=== PATIENT | male | born 1985 | race Caucasian/White ===

== ENCOUNTER 2023-02-22 20:56 | Outpatient (REF) | payer MEDICAID, SELFPAY ==
[2023-02-22 21:11] LABS: HCT 42.1 % (40.0-50.0); HGB 13.8 g/dL (13.5-17.5); MCH 28.8 pg (27.0-33.0); MCHC 32.8 % (32.0-36.0); MCV 88 fL (80-95); MPV 10.1 fL (8.0-11.0); Platelet Count 378 10^3/uL (130-400); RDW 11.9 % (11.8-14.1); RDW-SD 38.9 fL; WBC 6.68 10^3/uL (4.4-10.8)
[2023-02-22 21:21] LABS: ALT 63 U/L (16-63); AST 40 U/L (15-37); Alkaline Phosphatase 78 U/L (46-116); Anion Gap 7.1 mmol/L (3-11); BUN 17 mg/dL (7-18); Bilirubin, Total 0.4 mg/dL (0.2-1.0); CO2 28.9 mmol/L (21.0-32.0); Calcium 9.4 mg/dL (8.5-10.1); Chloride 102 mmol/L (98-107); Estimated GFR 98.18 (mL/min/1.73m2); Glucose 93 mg/dL (74-106); Potassium 4.2 mmol/L (3.5-5.1); Sodium 138 mmol/L (136-145); Total Protein 7.7 g/dL (6.4-8.2)
== END 2023-02-22 20:57 | disposition home or self-care (01) ==
LOC: NCHCN 20:56
PROVIDERS: Visit Provider Internal Medicine
DX: F10.11 Alcohol abuse, in remission (principal); F11.21 Opioid dependence, in remission
CPT/HCPCS: 80053; 85027

== ENCOUNTER 2023-08-16 15:13 | Outpatient (REF) | payer MEDICAID, SELFPAY ==
[2023-08-17 18:23] LABS: HBs Antibody, Quant <3.1 mIU/mL (See Note); Hepatitis B Surface Ab Negative (See Note)
[2023-08-17 18:31] LABS: Hepatitis B Surface Ag Negative (Negative)
[2023-08-17 19:02] LABS: HIV-1/2 Ag & Ab Screen Negative (Negative); Hepatitis C Ab w Rflx HCV PCR Negative (Negative)
[2023-08-20 11:35] LABS: Syphilis Serology (RPR) Negative (Negative)
[2023-08-20 12:11] LABS: Hepatitis Be Antigen Negative (Negative)
== END 2023-08-16 15:14 | disposition home or self-care (01) ==
LOC: NCHCN 15:13
PROVIDERS: PCP Internal Medicine; Visit Provider Internal Medicine
DX: W46.1XXA Contact with contaminated hypodermic needle, initial encounter (principal); Z11.4 Encounter for screening for human immunodeficiency virus [HIV]; Z11.59 Encounter for screening for other viral diseases; Z01.84 Encounter for antibody response examination
CPT/HCPCS: 86706; 86803; 87340; 87389; 86592; 87350